=== PATIENT | female | born 1965 | race Caucasian/White ===

== ENCOUNTER → 2020-08-17 | Outpatient (CLI) | payer BC, OTHER ==
[~2020-08-17] MED LIST: CARAFATE1 GM PO; KLONOPIN TAB 00.5 MG PO; NORCO 5-325 TA1 EACH PO; PROTONIX40 MG PO; [UNRECOGNIZED DRUG - OTHER] INH
[2020-08-17 08:08] LABS: HEMOGLOBIN 16.9 gm/dl (12.3-15.3); RED BLOOD COUNT 5.35 M/UL (4.00-5.10); WHITE BLOOD COUNT 11.4 K/UL (4.5-11.0)
[2020-08-17 08:16] LABS: BUN/CREATININE RATIO 11 (0-10)
== END ==
LOC: LAB 06:51
PROVIDERS: Family Medicine
DX: M25.561 Pain in right knee (principal); E55.9 Vitamin D deficiency, unspecified; Z13.220 Encounter for screening for lipoid disorders; M25.442 Effusion, left hand; M19.90 Unspecified osteoarthritis, unspecified site; M54.31 Sciatica, right side; M79.89 Other specified soft tissue disorders; M51.36 Other intervertebral disc degeneration, lumbar region; M16.11 Unilateral primary osteoarthritis, right hip
CPT/HCPCS: 36415; 72100; 73140; 73502; 73562; 80053; 80061; 84439; 84443; 85027

== ENCOUNTER 2020-11-27 08:57 | Emergency (ER) | payer BC ==
[2020-11-27 09:50] LABS: HEMOGLOBIN 18.6 gm/dl (12.3-15.3); RED BLOOD COUNT 5.87 M/UL (4.00-5.10); WHITE BLOOD COUNT 11.8 K/UL (4.5-11.0)
[2020-11-27 10:31] LABS: BUN/CREATININE RATIO 8 (0-10)
[2020-11-27] MEDS ORDERED: K-DUR TAB 10 M10 MEQ PO (12:40)
== END 2020-11-27 13:15 | disposition home or self-care (01) ==
LOC: ER1 08:57
PROVIDERS: Physician Assistant
DX: R07.9 Chest pain, unspecified (principal); J44.9 Chronic obstructive pulmonary disease, unspecified; F17.210 Nicotine dependence, cigarettes, uncomplicated; Z79.899 Other long term (current) drug therapy; Z20.822 Contact with and (suspected) exposure to COVID-19
CPT/HCPCS: 71046; 80053; 82550; 82553; 83874; 84484; 85025; 85379; 93005; 99285; U0002

== ENCOUNTER → 2020-12-18 | Outpatient (CLI) | payer BC ==
[~2020-12-18] MED LIST changes: +K-DUR TAB 10 M10 MEQ PO
== END ==
LOC: LAB 07:19
DX: E87.6 Hypokalemia (principal)
CPT/HCPCS: 36415; 84132

== ENCOUNTER 2021-01-28 09:55 | Inpatient (IN) | payer BC ==
[~2021-01-28] VITALS: Ht 165.1 cm; Wt 48.0 kg
[2021-01-28 10:33] LABS: HEMOGLOBIN 18.9 gm/dl (12.3-15.3); RED BLOOD COUNT 5.95 M/UL (4.00-5.10); WHITE BLOOD COUNT 15.5 K/UL (4.5-11.0)
[2021-01-28 10:59] LABS: BUN/CREATININE RATIO 11 (0-10)
[2021-01-28] MEDS ORDERED: IBU800 MG PO (13:44)
[2021-01-28] MEDS ORDERED: DRISDOL1250 MCG PO (13:45)
--- NOTE | 2021-01-28 17:40 | NUR ---
1615: CANDIE, CARDIOLOGY PA NOTIFIED OF PATIENT HAVING HR IN <60. WHEN ASKED ABOUT HOLDING LOPRESSOR THAT WAS ORDERED AND HE SAID TO HOLD IF HR MAINTAINS <55.
[2021-01-28 19:59] LABS: HEMOGLOBIN 16.9 gm/dl (12.3-15.3); RED BLOOD COUNT 5.38 M/UL (4.00-5.10); WHITE BLOOD COUNT 14.1 K/UL (4.5-11.0)
[2021-01-28 20:43] LABS: BUN/CREATININE RATIO 16 (0-10)
[2021-01-29 05:15] LABS: HEMOGLOBIN 16.9 gm/dl (12.3-15.3); RED BLOOD COUNT 5.44 M/UL (4.00-5.10); WHITE BLOOD COUNT 13.1 K/UL (4.5-11.0)
[2021-01-29 06:30] LABS: BUN/CREATININE RATIO 21 (0-10)
[2021-01-30 08:06] LABS: HEMOGLOBIN 15.9 gm/dl (12.3-15.3); RED BLOOD COUNT 5.08 M/UL (4.00-5.10)
[2021-01-30 09:25] LABS: BUN/CREATININE RATIO 18 (0-10)
[2021-01-30] MEDS ORDERED: NITROGLYCERIN0.4 MG SL (12:44)
[2021-01-30] MEDS ORDERED: ATORVASTATIN CA20 MG PO (12:44)
[2021-01-30] MEDS ORDERED: BRILINTA 90 MG90 MG PO (12:44)
[2021-01-30] MEDS ORDERED: ASPIRIN EC81 MG PO (12:44)
[2021-01-30] MEDS ORDERED: ISOSORBIDE MONO30 MG PO (12:44)
== END 2021-01-30 13:19 | disposition home or self-care (01) | DRG 247 ==
LOC: ER1 09:55 → CDU 10:19 → CCU 13:14
PROVIDERS: Emergency Medicine; Nurse Practitioner; ADMIT Internal Medicine Interventional Cardiology
PROC: B24BZZZ Ultrasonography of Heart with Aorta (ICD-10-PCS; principal; 2021-01-28)
PROC: 027034Z Dilation of Coronary Artery, One Artery with Drug-eluting Intraluminal Device, Percutaneous Approach (ICD-10-PCS; 2021-01-28)
PROC: 4A023N7 Measurement of Cardiac Sampling and Pressure, Left Heart, Percutaneous Approach (ICD-10-PCS; 2021-01-28)
PROC: B2111ZZ Fluoroscopy of Multiple Coronary Arteries using Low Osmolar Contrast (ICD-10-PCS; 2021-01-28)
DX: I21.09 ST elevation (STEMI) myocardial infarction involving other coronary artery of anterior wall (principal); Z20.822 Contact with and (suspected) exposure to COVID-19; J44.9 Chronic obstructive pulmonary disease, unspecified; F41.9 Anxiety disorder, unspecified; E55.9 Vitamin D deficiency, unspecified; F17.210 Nicotine dependence, cigarettes, uncomplicated; E78.5 Hyperlipidemia, unspecified; I10 Essential (primary) hypertension; Z90.49 Acquired absence of other specified parts of digestive tract; Z82.49 Family history of ischemic heart disease and other diseases of the circulatory system
CPT/HCPCS: ECHO; 36415; 71045; 80048; 80053; 80061; 82550; 82553; 83874; 84484; 85025; 85027; 85347; 85610; 85730; 93005; 93306; 96374; 96375; 99285; C1725; C1769; C1874; C1887; J0461; J1265; J1644; J2270; J2370; J2405; J3246; J7040; Q9965; U0002

== ENCOUNTER → 2021-06-10 | Outpatient (CLI) | payer BC ==
[~2021-06-10] MED LIST changes: +ASPIRIN EC81 MG PO; +ATORVASTATIN CA20 MG PO; +BRILINTA 90 MG90 MG PO; +DRISDOL1250 MCG PO; +IBU800 MG PO; +ISOSORBIDE MONO30 MG PO; +NITROGLYCERIN0.4 MG SL
== END ==
LOC: HEART 5 13:49
DX: R06.00 Dyspnea, unspecified (principal)
CPT/HCPCS: 94060; 94729

== ENCOUNTER → 2021-06-28 | Outpatient (CLI) | payer BC | LOC: KOH-I 13:59 | DX: F17.210 Nicotine dependence, cigarettes, uncomplicated (principal) | CPT/HCPCS: 71271 ==

== ENCOUNTER → 2021-07-06 | Outpatient (CLI) | payer BC | LOC: MAMO 13:46 | DX: Z12.31 Encounter for screening mammogram for malignant neoplasm of breast (principal) | CPT/HCPCS: 77063; 77067 ==

== ENCOUNTER → 2021-07-19 | Outpatient (CLI) | payer BC ==
[2021-07-19 07:22] LABS: HEMOGLOBIN 17.5 gm/dl (12.3-15.3); RED BLOOD COUNT 5.5 M/UL (4.00-5.10); WHITE BLOOD COUNT 12.2 K/UL (4.5-11.0)
[2021-07-19 07:47] LABS: BUN/CREATININE RATIO 12 (0-10)
[2021-07-20 12:12] LABS: RHEUMATOID ARTHRITIS FACTOR <10.0 IU/mL (<14.0)
== END ==
LOC: LAB 06:12
PROVIDERS: Nurse Practitioner Family
DX: J44.9 Chronic obstructive pulmonary disease, unspecified (principal); E53.8 Deficiency of other specified B group vitamins; E55.9 Vitamin D deficiency, unspecified; M25.50 Pain in unspecified joint
CPT/HCPCS: 36415; 80053; 80061; 82607; 84439; 84443; 85025; 85652; 86140; 86200; 86431

== ENCOUNTER → 2021-08-31 | Outpatient (CLI) | payer BC ==
[2021-08-31 17:09] LABS: HEMOGLOBIN 16.7 gm/dl (12.3-15.3); RED BLOOD COUNT 5.22 M/UL (4.00-5.10); WHITE BLOOD COUNT 13.5 K/UL (4.5-11.0)
== END ==
LOC: LAB 16:19
PROVIDERS: Nurse Practitioner Family
DX: J42 Unspecified chronic bronchitis (principal); R05.9 Cough, unspecified
CPT/HCPCS: 85025

== ENCOUNTER → 2021-09-23 | Outpatient (CLI) | payer BC | LOC: EXRD 10:20 | DX: M81.0 Age-related osteoporosis without current pathological fracture (principal) | CPT/HCPCS: 77080 ==

== ENCOUNTER → 2021-12-15 | Outpatient (CLI) | payer BC | LOC: KOH-I 13:30 | DX: D75.1 Secondary polycythemia (principal) | CPT/HCPCS: 71250 ==